=== PATIENT | female | born 1960 | race Caucasian/White ===

== ENCOUNTER 2022-12-17 08:59 | Day surgery (SDC) | payer BC ==
[~2022-12-17] VITALS: Ht 167.6 cm; Wt 63.0 kg
[2022-12-17 10:35] VITALS: O2SAT 99
[2022-12-17] MEDS ORDERED: BUPIVACAINE /PF 0.25% 30 ML VIAL INJ ONE (10:35)
[2022-12-17] MEDS ORDERED: SUGAMMADEX SODIUM 200 MG/2 ML VIAL IV ONE (10:35)
[2022-12-17] MEDS ORDERED: MIDAZOLAM HCL/PF 2 MG/2 ML SYRINGE ONE (10:35)
[2022-12-17] MEDS ORDERED: WATER FOR IRRIGATION,STERILE 1,000 ML IRRIG.SOLN IR ONE (10:35)
[2022-12-17] MEDS ORDERED: ROCURONIUM BROMIDE 10 MG/ML (ZEMURON) ONE (10:35)
[2022-12-17] MEDS ORDERED: SUCCINYLCHOLINE CHLORIDE 20 MG/ML(QUELICIN) ONE (10:35)
[2022-12-17] MEDS ORDERED: SEVOFLURANE 15 MIN GAS INH ONE (10:35)
[2022-12-17] MEDS ORDERED: fentaNYL CITRATE/PF 100 MCG/2 ML AMP ONE (10:35)
[2022-12-17] MEDS ORDERED: CLINDAMYCIN PHOSPHATE 600 mg/50mL D5W IV ONE (10:35)
[2022-12-17] MEDS ORDERED: NS IRRIG SOLN 1000 ML IR ONE (10:35)
[2022-12-17] MEDS ORDERED: PROPOFOL DRIP 10 MG/ML 100ML BOTTLE IV ONE (10:35)
[2022-12-17] MEDS ORDERED: HYDROmorphone 1 MG/ML INJ. CARTRIDGE IVP PRN (11:30)
[2022-12-17] MEDS ORDERED: METOCLOPRAMIDE HCL 10 MG/2 ML VIAL IVP PRN (11:30)
[2022-12-17] MEDS ORDERED: MIDAZOLAM HCL 5 MG/5 ML VIAL IVP PRN (11:30)
[2022-12-17] MEDS ORDERED: IBUPROFEN 600 MG TABLET PO ONE (11:30)
[2022-12-17] MEDS ORDERED: KETOROLAC TROMETHAMINE 30 MG VIAL IVP PRN (11:30)
[2022-12-17] MEDS ORDERED: ONDANSETRON HCL 4 MG/2 ML VIAL IVP PRN (11:30)
[2022-12-17] MEDS ORDERED: traMADol HCL HCL 50 MG TABLET (ULTRAM) PO PRN (12:00)
[2022-12-17] MEDS ORDERED: METOCLOPRAMIDE HCL 10 MG/2 ML VIAL ONE (13:36)
[2022-12-17 14:00] VITALS: PULSE 61; RESP 19; TEMP 97.5
[2022-12-17 14:04] VITALS: BP_SYST 123
== END 2022-12-17 15:25 | disposition home or self-care (01) ==
LOC: SDS 08:59 → SMU 09:00 → SDS 15:25
PROVIDERS: ATTEND Surgery
DX: T85.79XA Infection and inflammatory reaction due to other internal prosthetic devices, implants and grafts, initial encounter (principal); L03.316 Cellulitis of umbilicus; K21.9 Gastro-esophageal reflux disease without esophagitis; M25.562 Pain in left knee; Z87.891 Personal history of nicotine dependence; Z80.9 Family history of malignant neoplasm, unspecified; Y82.8 Other medical devices associated with adverse incidents
CPT/HCPCS: 87081; 11005; 11008; 87070; 87075; 87101; 88304; J3490 ×3; J2765; J3465; J2704; J0330; J3010